=== PATIENT | female | born 1985 | race Caucasian/White ===

== ENCOUNTER 2017-09-06 21:25 | Emergency (ER) | payer OTHER ==
[~2017-09-06] VITALS: Ht 157.5 cm; Wt 69.4 kg
[2017-09-06 21:55] VITALS: Ht 157.5 cm; Wt 69.4 kg
[2017-09-06 23:41] VITALS: BP 129/55
== END 2017-09-06 23:41 | disposition home or self-care (01) ==
LOC: ED 21:25
DX: R10.31 Right lower quadrant pain (principal); R19.7 Diarrhea, unspecified
CPT/HCPCS: J1885

== ENCOUNTER 2018-04-24 19:45 | Emergency (ER) | payer OTHER ==
[~2018-04-24] VITALS: Ht 157.5 cm; Wt 85.3 kg
[2018-04-24 21:10] VITALS: Ht 157.5 cm; Wt 85.3 kg
[2018-04-24 23:25] VITALS: BP 140/80
== END 2018-04-24 23:25 | disposition home or self-care (01) ==
LOC: ED 19:45
DX: O26.892 Other specified pregnancy related conditions, second trimester (principal); G57.22 Lesion of femoral nerve, left lower limb; Z3A.28 28 weeks gestation of pregnancy
CPT/HCPCS: Q0092